=== PATIENT | male | born 1995 | race Caucasian/White ===

== ENCOUNTER 2017-01-16 20:21 | Emergency (ER) | payer BC ==
[2017-01-16 20:30] VITALS: RESP 18; TEMP 98.8
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
--- NOTE | 2017-01-16 21:59 | CPEKG ---
Heart Rate: 78 RR Interval: 769 P-R Interval: 136 QRSD Interval: 90 QT Interval: 372 QTC Interval: 424 P Cade: 82 QRS Cade: 93 T Wave Cade: 47 EKG Severity - OTHERWISE NORMAL ECG - EKG Impression: SINUS RHYTHM EKG Impression: BORDERLINE RIGHT AXIS DEVIATION Electronically Signed By: Domenico Fonseca 18-Jan-2017 17:58:52
[2017-01-16 22:09] VITALS: BP 136/76; O2SAT 95
[2017-01-16 22:33] VITALS: PULSE 78
== END 2017-01-16 22:34 | disposition home or self-care (01) ==
DX: S09.90XA Unspecified injury of head, initial encounter (principal); V11.4XXA Pedal cycle driver injured in collision with other pedal cycle in traffic accident, initial encounter; Y92.410 Unspecified street and highway as the place of occurrence of the external cause; Y99.8 Other external cause status; Y93.55 Activity, bike riding